=== PATIENT | female | born 1995 | race Hispanic/Latino ===

== ENCOUNTER 2019-10-29 18:46 | Emergency (ER) | payer OTHER ==
[~2019-10-29] VITALS: Ht 154.9 cm; Wt 90.7 kg
--- NOTE | 2019-10-29 19:05 | NUR ---
GIVEN CUP FOR UA/PREG
[2019-10-29] MEDS ORDERED: KETOROLAC TROMETHAMINE 60 MG/2 ML VIAL IM ONE (19:15)
[2019-10-29] MEDS ORDERED: DIAZEPAM 5 MG TAB PO PRN (19:15)
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
[2019-10-29 21:55] VITALS: BP 128/76
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
== END 2019-10-29 21:10 | disposition home or self-care (01) ==
LOC: ER 18:46
DX: S16.1XXA Strain of muscle, fascia and tendon at neck level, initial encounter (principal); S29.012A Strain of muscle and tendon of back wall of thorax, initial encounter; V43.52XA Car driver injured in collision with other type car in traffic accident, initial encounter; Y92.410 Unspecified street and highway as the place of occurrence of the external cause
CPT/HCPCS: 70450; 72125; 72128; 72131; 81025; 99283; J1885